=== PATIENT | male | born 1990 | race Caucasian/White ===

== ENCOUNTER 2017-06-09 19:18 | Inpatient (IN) | payer OTHER ==
[~2017-06-09 19:18] MED LIST: ISOVUE-370 76%-LOCM 1 ML ONE
[2017-06-09] MEDS ORDERED: Lorazepam 2 MG/ML VIAL ONE ×2 (19:50→23:45)
[2017-06-09] MEDS ORDERED: Fosphenytoin Sodium 1,500 MG in Sodium Chloride 0.9% 50 ML IVPB SCH (20:15)
[2017-06-09] MEDS ORDERED: Haloperidol Lactate 5 MG/ML VIAL ONE ×2 (20:18→20:19)
[2017-06-09 21:10] LABS: Band 3 % (5-11); Hematocrit 56.3 % (42.0-52.0); Mean Platelet Volume 8.5 fL (7.4-10.4); Neutrophil 78 % (42-75); Reactive Lymphocytes 2 % (0-10); Red Blood Cell (RBC) Count 5.89 mill/uL (4.70-6.10); White Blood Cell (WBC) Count 54.2 thou/uL (4.8-10.8)
[2017-06-09 21:12] LABS: ALT (SGPT) 10 U/L (8-55); AST (SGOT) 24 U/L (5-34); Alkaline Phosphatase 72 U/L (40-150); BUN (Urea Nitrogen) 34 mg/dL (8.9-20.6); Bilirubin, Total 4.9 mg/dL (0.2-1.2); CK (CPK) 162 U/L (30-200); Calc. Creatinine Clearance 0 mL/min (70-130); Calcium 9.2 mg/dL (7.8-10.44); Carbon Dioxide 20 mmol/L (22-29); Estimated GFR-MDRD 49; Globulin 2.2 g/dL (2.4-3.5); Lipase 26 U/L (8-78)
[2017-06-09 21:43] LABS: Chloride Less than 65 mmol/L (98-107)
--- NOTE | 2017-06-09 21:52 | CT ---
CT HEAD: INDICATIONS: Seizure activity. FINDINGS: There is no evidence of ventriculomegaly, mass effect, midline shift, or acute intracranial hemorrhag e. The imaged paranasal sinuses reveal no acute fluid levels. IMPRESSION: No acute intracranial hemorrhage or mass effect. Should symptoms of seizures persist, may consider brain MRI for further evaluation. POS: Colleen
--- NOTE | 2017-06-09 21:57 | RAD ---
ONE VIEW CHEST: HISTORY: Seizure. COMPARISON: None. FINDINGS: Normal cardiac silhouette. The lungs and pleural spaces are clear. No pneumothorax or osseous abnor malities noted. IMPRESSION: No acute cardiopulmonary process. POS: H
[2017-06-09] MEDS ORDERED: Midazolam HCl 2 mg/2 ml Vial ONE ×2 (22:03→23:18)
[2017-06-09] MEDS ORDERED: Vecuronium 10 MG VIAL ONE (22:03)
[2017-06-09] MEDS ORDERED: Fentanyl 20 MCG/ML 250 ML ONE (22:04)
[2017-06-09] MEDS ORDERED: Potassium Chloride 20 MEQ in Sodium Chloride 0.9% 250 ML 250 ML IVPB SCH (22:15)
[2017-06-09 22:31] LABS: Lactic Acid - Sepsis 29.1 mmol/L (0.5-2.2)
[2017-06-09] MEDS ORDERED: Acyclovir Sodium 900 MG in Sodium Chloride 0.9% 250 ML 250 ML IVPB SCH (23:00)
[2017-06-09 23:06] LABS: Bilirubin Negative (Negative); Blood, Urine Large (Negative); Glucose, Urine (Dipstick) Negative (Negative); Ketone, Urine Negative (Negative); Nitrite Negative (Negative); Protein, Urine (Dipstick) 100 mg/dL (Neg-Trace)
[2017-06-09 23:08] LABS: Bacteria/HPF None Seen HPF (None Seen); Hyaline Casts/LPF 4-6 HYALINE CAST LPF (0-3 Hyaline); Squamous Epithelial 0-3 HPF (0-3); WBC/HPF 0-3 HPF (0-3)
[2017-06-09 23:14] LABS: Amphetamine Not Detected (NotDetected); Methamphetamine Not Detected (NotDetected)
--- NOTE | 2017-06-09 23:14 | RAD ---
EXAM: ONE VIEW CHEST 06/09/17 COMPARISON: 06/09/17, 8:53 p.m. HISTORY: Altered mental status. Line placement. FINDINGS: One view chest demonstrates an endotracheal tube at the level of the T2 vertebral body. Interval plac ement of right sided subclavian catheter with the distal tip in the expected region of the superior v jovana cava. No pneumothorax on this supine projection. Normal cardiac silhouette. No consolidation or mass. No osseous abnormality. IMPRESSION: Endotracheal tube and subclavian catheter as above. No pneumothorax. POS: CORBY
[2017-06-09 23:15] LABS: Methadone Not Detected (NotDetected)
[2017-06-09 23:15] LABS: Acetaminophen Less than 6.0 mcg/mL (10.0-30.0); Salicylate Less than 8.0 mg/dL (15.0-30.0)
[2017-06-09 23:23] LABS: Oxyhemoglobin 97.1 % (94.0-97.0); Sodium 121 mmol/L (135-148)
[2017-06-09 23:25] LABS: Mechanical Tidal Volume 500 ml; Mode SIMV; Modified Allen's Test POSITIVE; Vent YES
[2017-06-10 00:16] LABS: Troponin I 0.019 ng/mL (< 0.028)
[2017-06-10 00:30] LABS: CSF, Glucose 118 mg/dl (40-70)
[2017-06-10] MEDS ORDERED: Potassium Chloride 20 MEQ in Sodium Chloride 0.9% 250 ML 250 ML IVPB SCH (01:00)
[2017-06-10 01:35] LABS: Anion Gap 16 mmol/L (10-20); Carbon Dioxide 36 mmol/L (22-29)
[2017-06-10 01:37] LABS: BUN (Urea Nitrogen) 34 mg/dL (8.9-20.6); Calc. Creatinine Clearance 0 mL/min (70-130); Calcium 7.4 mg/dL (7.8-10.44); Chloride 73 mmol/L (98-107); Estimated GFR-MDRD 61
[2017-06-10] MEDS ORDERED: Midazolam HCl 5 mg/ml Vial ONE (01:45)
[2017-06-10] MEDS ORDERED: Propofol 1,000 MG/100 ML VIAL IV ONE (01:49)
--- NOTE | 2017-06-10 02:38 | PDOC.EVN ---
Event Note - Event Note Event Note: [id number] H&P Dictated 1. Acute respiratory failure 2. Lactic acidosis 3. Leukocytosis 4. Seizures Plan: see orders
[2017-06-10] MEDS ORDERED: Fentanyl 20 MCG/ML 250 ML IVPB SCH (02:45)
[2017-06-10] MEDS ORDERED: DISCONTINUE PREVIOUS NARCOTIC PAIN MEDICATIONS AND BENZODIAZEPINES FS SCH (02:45)
[2017-06-10] MEDS ORDERED: Ondansetron ODT 4 MG TAB SL PRN (02:46)
[2017-06-10] MEDS ORDERED: Ondansetron HCl/PF 4 MG/2 ML Vial IVP PRN (02:46)
[2017-06-10] MEDS ORDERED: Morphine 2 mg/2ml in 0.9% NaCl PF SYRINGE IVP PRN (03:00)
[2017-06-10] MEDS: NS 0.9% w/ 40 MEQ KCL 1,000 ML IV SCH ×2 (03:10→14:08)
[2017-06-10] MEDS ORDERED: Potassium Chloride 40 MEQ in Sodium Chloride 0.9% 250 ML 250 ML IVPB SCH (04:30)
[2017-06-10 04:58] LABS: Anion Gap 12 mmol/L (10-20); BUN (Urea Nitrogen) 35 mg/dL (8.9-20.6); Calc. Creatinine Clearance 67 mL/min (70-130); Calcium 7.7 mg/dL (7.8-10.44); Carbon Dioxide 35 mmol/L (22-29); Chloride 81 mmol/L (98-107); Estimated GFR-MDRD 51
[2017-06-10] MEDS ORDERED: Fentanyl 100 MCG/2 ML VIAL ONE (06:33)
--- NOTE | 2017-06-10 07:02 | HP ---
DATE OF ADMISSION: 06/10/2017 CHIEF COMPLAINT: Seizures. HISTORY OF PRESENT ILLNESS: Patient is a 27-year-old male with history of marijuana abuse and cyclic vomiting syndrome, now came to the ER complaining of seizures. According to the patient's partner, the patient was at home and started having seizure. The seizure lasted approximately 5-7 minutes, so patient was brought to the ER. Upon ER arrival, the patient had another episode of seizure. Follow ing the seizure, the patient was postictal and following that the patient got confused and agitated, so patient was intubated for airway protection. The patient is currently on the vent support, not ab le to get much history. According to the patient's partner, the patient is having nausea and vomitin g since Thursday, which the patient did get this cyclic episodes of vomiting, but did not have any vom iting today. Denies any fever, denies any chills, denies any cough, denies any sputum production acc ording to the patient's partner. PAST MEDICAL HISTORY: History of marijuana uses and cannabinoid vomiting syndrome. PAST SURGICAL HISTORY: None. SOCIAL HISTORY: Positive for smoking, positive for alcohol use, positive for marijuana. ALLERGIES: PENICILLIN. REVIEW OF SYSTEMS: None available from the patient. PHYSICAL EXAMINATION: CONSTITUTIONAL/VITAL SIGNS: At the time of H&P performed, blood pressure is 100/50, afebrile, pulse ox 97%. GENERAL: The patient is intubated. HEENT: Anterior nares patent. Oral cavity: Positive for ET tube. NECK: Supple. No JVD. CARDIOVASCULAR SYSTEM: S1, S2 present. Regular rate and rhythm, no murmurs, no rubs, no gallops. RESPIRATORY SYSTEM: No wheezing, no rhonchi. Breath sounds bilaterally. GASTROINTESTINAL: Abdomen is soft, nontender, no guarding, no organomegaly, no masses felt. MUSCULOSKELETAL: No edema. CRANIAL NERVES SYSTEM: The patient is sedated and intubated, not following commands. PSYCHIATRIC: Mood is lethargic. LABORATORY DATA: At the time of H&P performed, white count 4.2, hemoglobin 9.4, platelet count is 45 4. Blood gas showed pH 7.55, pCO2 45, pO2 316, bicarbonate is 38.8. BMP showed sodium 123, potassiu m 1.7, chloride 73, CO2 of 36, BUN of 34, creatinine 1.72. CRP is 0.58. Prolactin is 168. UA posit ursula for large blood. CSF analysis done showed cell count is 1 and 3, RBC 10 and 144, glucose is 118, total protein 45. Urine drug screen is positive for cannabinoids and also barbiturates. ASSESSMENT AND PLAN: The patient is a 27-year-old male. 1. Acute respiratory failure secondary to seizures. Plan to monitor respiratory status closely. Pl an to consult Pulmonary to evaluate the patient. We will follow the patient. 2. Seizures. Plan to start the patient on p.r.n. Ativan. Continue Diprivan drip. We will wait for Neuro input. 3. Hyponatremia and hypochloremia. We will continue IV fluids, monitor sodium level closely. Sodiu m level checked improved as the potassium level improves. 4. Hypokalemia. We will replace potassium. 5. Lactic acidosis and elevated leukocytosis. Need to rule out sepsis. Plan to start the patient o n broad spectrum antibiotics. Monitor serial lactate levels. Case was discussed in detail with the patient and patient's significant other also and RN.
[2017-06-10 08:06] LABS: Oxyhemoglobin 93.5 % (94.0-97.0); Sodium 126 mmol/L (135-148)
[2017-06-10 08:10] LABS: Mechanical Tidal Volume 500 ml; Mode SIMV.PSV; Modified Allen's Test NOT DONE; Pressure Support 10 cmH2O; Vent YES
--- NOTE | 2017-06-10 08:13 | CT ---
PRELIMINARY REPORT/[facility]/EMERGENCY AFTER HOURS PROCEDURE: EXAM: CT Chest With Intravenous Contrast CLINICAL HISTORY: 27 years old, male; Signs and symptoms; Fever; Patient HX: Fever; 27m presents after new onset seizur e. Partner states that patient was lying in bed, when he arched his back and began convulsing. She reports this lasted "anywhere from 2-7 minutes" and that he started to "foam at the mouth". Patient denies knowledge of the event and what lead up to it. He reports "waking up" once ems arrived . He states that he has had recent episodes of nausea and vomiting for the last 2 days. He states melyssa t he has these episodes over the last 3 years, for which he has had extensive work up and it was [place] that he suffers from hyperemesis cannabinoid syndrome. Patient states he has been trying to quit using marijuana and has not smoked in 4 weeks. Denies fever and chills recently. Denies head injury. TECHNIQUE: Axial computed tomography images of the chest with intravenous contrast. Coronal reformatted images were created and reviewed. CONTRAST: 70 mL of isovue 370 administered intravenously. COMPARISON: No relevant prior studies available. FINDINGS: Lungs: There is consolidation in the superior segment of the LEFT lower lobe and patchy opacities in the bilateral upper lobes compatible with pneumonia. Pleural space: Normal. No pneumothorax. No significant effusion. Heart: The cardiac structures are normal. No significant pericardial effusion. Thyroid: The visualized thyroid gland is unremarkable. Bones/joints: Normal. No acute fracture. No dislocation. Soft tissues: Normal. Vasculature: Normal. No thoracic aortic aneurysm. Lymph nodes: Normal. No enlarged lymph nodes. Tubes, lines and devices: A right subclavian central venous catheter is present, with its tip overlyi ng the region of the superior vena cava. A nasogastric tube lies with its tip in the stomach. An endo tracheal tube is present, lying with its tip 2 cm above the venancio. IMPRESSION: Bilateral pneumonia with large consolidation in the superior LEFT lower lobe. EXAM: CT Abdomen and Pelvis With Intravenous Contrast EXAM DATE/TIME: Exam ordered 06/10/2017 12:02 AM CLINICAL HISTORY: 27 years old, male; Signs and symptoms; Fever; Patient HX: Fever; 27m presents after new onset seizur e. Partner states that patient was lying in bed, when he arched his back and began convulsing. She re ports this lasted "anywhere from 2-7 minutes" and that he started to "foam at the mouth". Patient denies knowledge of the event and what lead up to it. He reports "waking up" once ems arrived . He states that he has had recent episodes of nausea and vomiting for the last 2 days. He states melyssa t he has these episodes over the last 3 years, for which he has had extensive work up and it was [place] that he suffers from hyperemesis cannabinoid syndrome. Patient states he has been trying to quit using marijuana and has not smoked in 4 weeks. Denies fever and chills recently. Denies head injury. TECHNIQUE: Axial computed tomography images of the abdomen and pelvis with intravenous contrast. Coronal reformatted images were created and reviewed. CONTRAST: 70 mL of isovue 370 administered intravenously. COMPARISON: No relevant prior studies available. FINDINGS: ABDOMEN: Liver: There are no focal liver lesions present. Gallbladder and bile ducts: The gallbladder is normal. There is no evidence of biliary ductal dilatio n. No calcified stones. Pancreas: The pancreas is normal. No ductal dilation. Spleen: The spleen is normal. Adrenals: The adrenal glands are normal. Kidneys and ureters: The kidneys are normal. No hydronephrosis. Stomach and bowel: The duodenum is unremarkable. The stomach is normal. The colon is normal. There is a small bowel small bowel intussusception in the LEFT upper quadrant which is typically patel sient and of no clinical significance. No obstruction. No mucosal thickening. Appendix: No findings to suggest acute appendicitis. PELVIS: Bladder: The bladder is decompressed by a Valdez catheter but is otherwise normal. There is a small am ount of intraluminal air consistent with instrumentation. Reproductive: The prostate gland and seminal vesicles are normal. ABDOMEN and PELVIS: Intraperitoneal space: Normal. No free air. No significant fluid collection. Bones/joints: No acute fracture. No dislocation. Soft tissues: Normal. Vasculature: Normal. No abdominal aortic aneurysm. Lymph nodes: Normal. No enlarged lymph nodes. Tubes, lines and devices: A nasogastric tube lies with its tip in the stomach. IMPRESSION: No acute findings. Thank you for allowing us to participate in the care of your patient. Dictated and Authenticated by: Ben Rodriguez MD 06/10/2017 12:32 AM Central Time ([place] & [place]) FINAL REPORT CT CHEST AND ABDOMEN AND PELVIS WITH IV CONTRAST I agree with the preliminary report given by Dr. Ben Rodriguez of [facility]. POS: H
--- NOTE | 2017-06-10 08:20 | PDOC.PN ---
- Subjective Encounter Start Date: 06/10/17 Encounter Start Time: 08:18 Mr. Gutierrez was seen today in follow-up of seizures, and electrolyte abnormalities. He is intubated and sedated. He has ahd some agitation, and is kicking, and pulled his [place] catheter out. - Objective MAR Reviewed: Yes Vital Signs & Weight: Vital Signs (12 hours) Pulse Resp BP Pulse Ox 06/10/17 07:32 94 124/66 06/10/17 07:31 94 18 99 06/10/17 06:00 18 06/10/17 04:00 18 06/10/17 02:53 78 135/72 Weight Weight 153 lb 14.122 oz Most Recent Monitor Data Heart Rate from ECG 92 NIBP 124/66 NIBP BP-Mean 84 Respiration from ECG 18 SpO2 100 I&O: 06/09/17 06/10/17 06/11/17 06:59 06:59 06:59 Intake Total 779.5 Output Total 295 60 Balance 484.5 -60 Result Diagrams: 06/09/17 20:36 06/10/17 04:22 Phys Exam - Physical Examination HEENT: PERRLA Respiratory: no wheezing, no rales, no rhonchi, clear to auscultation bilateral Cardiovascular: RRR, no significant murmur, no rub Gastrointestinal: soft, non-tender, positive bowel sounds Musculoskeletal: no edema Dx/Plan (1) Seizure Code(s): R56.9 - UNSPECIFIED CONVULSIONS Status: Acute (2) Hypokalemia Code(s): E87.6 - HYPOKALEMIA Status: Acute (3) Hyponatremia Code(s): E87.1 - HYPO-OSMOLALITY AND HYPONATREMIA Status: Acute (4) Acute renal failure Status: Acute (5) Cyclic vomiting syndrome Status: Acute (6) Cannabis abuse Code(s): F12.10 - CANNABIS ABUSE, UNCOMPLICATED Status: Acute (7) Leukocytosis Code(s): D72.829 - ELEVATED WHITE BLOOD CELL COUNT, UNSPECIFIED Status: Acute - Plan * Seizure- ? etiology according to his girlfriend who is at the bedside, he does not have a history of seizures. This could be due to the metabolic and electrolyte derrangements * Continue IV sedation, and patient was loaded with Fosphenatoin * Await MRI, and Neurology opinion * Leukocytosis- _ due to seizure- he is being covered with broad spectrum IV antibiotics including Levaquin, and Vancomycin, and also an Acyclovir to cover for Herpes Meningitis * ID has been consulted * Hyponatremia, and Hypokalemia are likely from the cyclic vomiting, as well as a contraction alkalosis- continue IV replacement of fluids, and electrolytes * Will need to check a serum Magnesium * Continue ventilator support to protect his airway
[2017-06-10] MEDS ORDERED: CCU Electrolyte Replacement 1 EACH FS ONE (08:45)
[2017-06-10] MEDS ORDERED: Potassium Phosphate 9 MMOL in Sodium Chloride 0.9% 100 ML IVPB PRN (08:59)
[2017-06-10] MEDS ORDERED: Potassium Chloride 20 MEQ TAB PO PRN (08:59)
[2017-06-10] MEDS ORDERED: CCU ELECTROLYTE REPLACEMENT PROTOCOL FS PRN (08:59)
[2017-06-10] MEDS ORDERED: Potassium Phosphate 15 MMOL in Sodium Chloride 0.9% 250 ML 250 ML IV PRN (08:59)
[2017-06-10] MEDS ORDERED: Magnesium Oxide 400 MG TAB PO PRN ×2 (08:59)
[2017-06-10] MEDS ORDERED: Potassium Phosphate 12 MMOL in Sodium Chloride 0.9% 250 ML 250 ML IV PRN (08:59)
[2017-06-10] MEDS ORDERED: Potassium Chloride 40 MEQ in Sodium Chloride 0.9% 250 ML 250 ML IVPB PRN (08:59)
[2017-06-10] MEDS ORDERED: Magnesium 2 GM/NS 0.9% 100 ML 2 GM in Premix Bag 1 BAG IVPB PRN (08:59)
[2017-06-10] MEDS: Enoxaparin Sodium 40 MG/0.4 ML SYRINGE SC SCH (09:24)
[2017-06-10] MEDS: Lorazepam 2 MG/ML VIAL SLOW IVP PRN ×2 (09:24→23:10)
[2017-06-10] MEDS: Pot Chloride/Pot Bicarb/Cit Ac 25 mEq Effervescent Tablet PO SCH ×2 (10:10→17:33)
[2017-06-10] MEDS: Famotidine/PF 20 mg/2ml Vial SLOW IVP SCH ×2 (10:11→20:05)
--- NOTE | 2017-06-10 10:11 | CON ---
DATE OF CONSULTATION: 06/10/2017 CONSULTING PHYSICIAN: Dr. Knowles in Critical Care. CONSULTED PHYSICIAN: Dr. Damon with Urology. REASON FOR CONSULTATION: Traumatic Valdez removal. HISTORY OF PRESENT ILLNESS: Mr. Gutierrez is a 27-year-old male who currently has been admitt ed for seizures and altered mental status. He was intubated in the emergency room for his seizure ac tivity. Last night, he underwent a sedation holiday this morning to see how he would respond off sed ation and unfortunately the patient became extremely agitated and began pulling at things out of conc octavio for his ET tube, his arms were restrained, but he used his feet and toes to pull out his Valdez ca theter which resulted in bright red bleeding from the meatus. Pressure was held on the penis which s low the bleeding down, but I was consulted for further assistance. I recommended that the nurses att empt to gently replace an 18 British Valdez catheter back into the bladder and so long as they got urin e back from the bladder that the balloon could be inflated. If there was any difficulty or no urine return, they were not to inflate the balloon and notify me for catheter placement. On my arrival to the patient's bedside, the catheter has already been placed. The patient is re-sedated and remains i ntubated. There is a family member at bedside who provided the history as the patient cannot speak f or himself. Discussing it with the family member, they state that the patient has never had previous histories of hematuria, kidney stones, prior urologic surgeries, urinary tract infections or any dif ficulty with urination. ALLERGIES: PENICILLIN. CURRENT MEDICATIONS: None. PAST MEDICAL HISTORY: Vomiting syndrome. PAST SURGICAL HISTORY: None. SOCIAL HISTORY: Patient smokes cigarettes as well as marijuana. He does drink a fair amount of rum and cokes about 3-7 a week. There is no other reported use of illicit drugs other than marijuana. FAMILY HISTORY: Noncontributory. REVIEW OF SYSTEMS: I am not able to obtain review of systems from the patient as he is currently int ubated. PHYSICAL EXAMINATION: VITAL SIGNS: Temperature 98.6, pulse 91, blood pressure 109/65, respirations 18 on ventilator, satur ation 99% with 30% FiO2. GENERAL: Patient is currently intubated and sedated. HEENT: ET tube secured in place. Pupils are small, but otherwise symmetric. No scleral icterus. T rachea midline. CARDIOVASCULAR: Regular rate and rhythm, normal S1 and S2. Symmetric pulses. CHEST: Bibasilar crackles. Symmetric expansion of lungs. Patient is breathing through a ventilator . ABDOMEN: Soft, nontender, and nondistended. No hepatosplenomegaly. Positive bowel sounds. GENITOURINARY: Valdez catheter has been reinserted, it is only a 16 British catheter. There is some b lood tinged urine in the drainage tube, but there does not appear to be any clots. Catheter secured to the patient's leg with foam tape and a StatLock. Testes are bilaterally descended. No scrotal ed tamra. RECTAL: Deferred. EXTREMITIES: No clubbing, cyanosis or edema. MUSCULOSKELETAL: There are no joint deformities or joint erythema noted. Range of motion could not be tested as the patient is currently sedated and restrained. NEUROLOGIC: Not tested. SKIN: Warm, dry, good turgor, no rashes or lesions. PSYCHIATRIC: Could not be tested. LYMPHATICS: There is no obvious lymphadenopathy in the supraclavicular, axillary, popliteal, and ing uinal regions. LABORATORY DATA AND X-RAY FINDINGS: On laboratory evaluation, a full set of labs in the [facility], which I have reviewed. Of note, the patient's white count is 54,000 with hemoglobin of 19.4, pl atelet count is 454,000. Sodium is 126 with potassium of 2.0, creatinine of 1.66. CT of the chest, abdomen, and pelvis done on 06/09/2017 demonstrates no acute findings other than bilateral pneumonia with large consolidation in the superior left lower lobe. ASSESSMENT AND PLAN: A 27-year-old male with traumatic Valdez removal with correct insertion back into the bladder with only blood tinged urine output. He is currently on antibiotics already w ith vancomycin and Levaquin for his pneumonia. This should be more than adequate coverage for his ur inary tract. I would recommend leaving the Valdez catheter in place secured for at least 7 days at ich time if he is extubated and awake, he can undergo a voiding trial. As long as he is able to urin ate properly and does not have any further urinary constriction to constraints, he should not require any further treatment from my standpoint. I will continue to monitor him while he is in the [facility] to see when he will be a candidate for a voiding trial.
[2017-06-10] MEDS: Propofol 1,000 MG/100 ML VIAL IV PRN ×2 (10:25→18:16)
[2017-06-10] MEDS ORDERED: Vancomycin HCl 1 GM in Premix Bag 1 BAG IVPB SCH ×2 (11:00→23:00)
[2017-06-10] MEDS ORDERED: Vancomycin HCl 1.5 GM in Sodium Chloride 0.9% 250 ML 300 ML IVPB SCH (11:00)
[2017-06-10 12:33] LABS: Anion Gap 8 mmol/L (10-20); BUN (Urea Nitrogen) 34 mg/dL (8.9-20.6); Calc. Creatinine Clearance 56 mL/min (70-130); Calcium 7.6 mg/dL (7.8-10.44); Carbon Dioxide 36 mmol/L (22-29); Chloride 87 mmol/L (98-107); Estimated GFR-MDRD 41
[2017-06-10 13:31] LABS: #Basophils 0.1 thou/uL (0.0-0.2); #Eosinphils 0.1 thou/uL (0.0-0.7); %Lymphocytes 16.9 % (21.0-51.0); Hematocrit 43.8 % (42.0-52.0); Mean Platelet Volume 8.4 fL (7.4-10.4); Red Blood Cell (RBC) Count 4.59 mill/uL (4.70-6.10); White Blood Cell (WBC) Count 18.6 thou/uL (4.8-10.8)
[2017-06-10] MEDS ORDERED: Acyclovir Sodium 780 MG in Sodium Chloride 0.9% 250 ML 250 ML IVPB SCH (14:00)
[2017-06-10] MEDS: Potassium Chloride 40 MEQ in Premix Bag 1 BAG IVPB PRN (14:13)
--- NOTE | 2017-06-10 14:37 | CON ---
DATE OF CONSULTATION: 06/10/2017 REASON FOR CONSULTATION: Neutrophilia,.seizures. HISTORY OF PRESENT ILLNESS: A 27-year-old who is admitted for the first time to [facility] and has a history of chronic use of marijuana with recurrent episodes of vomiting. He has had those for the past 4 years and usually they occur every 4-8 weeks. He will go for a few days with vomiting and will stop using cannabinoids and then symptoms will resolve and then he will resume the use subsequently. According to his girlfriend for the past few months he has tried to decrease the intake of cannabinoids, but still having intermittent recurrence of the episodes. At this time he was recovering from one of those episodes of vomiting and then he had seizure activity. Prior to the event the girlfriend does not remember any complaint of headache, fever or chills. No respiratory symptoms. No abdominal pain, no diarrhea, no genitourinary symptoms, no joint symptoms or skin disorder. PAST MEDICAL HISTORY: Chronic marijuana use with likely cannabinoid hyperemesis syndrome. PAST SURGICAL HISTORY: Negative. SOCIAL HISTORY: He was a student at [employer], but quit after his roommate committed suicide and now he had been working in the retail area. SOCIAL HISTORY: He drinks alcoholic beverages intermittently, heterosexual and uses cannabinoids chronically. ALLERGIES: PENICILLIN with a rash. CURRENT MEDICATIONS: Inhalers, acyclovir, enoxaparin, Pepcid, fentanyl, levofloxacin, Ativan, magnesium, morphine, potassium, vancomycin. PHYSICAL EXAMINATION: VITAL SIGNS: T-max 98.6, blood pressure 106/70, pulse 85, respirations 13, O2 sat 92%. GENERAL: The patient gets agitated intermittently, but he is intubated right now. He removed his Valdez catheter forcefully and it had to be reinserted. SKIN: Shows the peripheral IV access. Valdez catheter. HEENT: Ocular movements appear conjugate. Pupils are reactive. Sclerae white. There is a quite prominent chemosis bilaterally. Orotracheal intubation. LUNGS: With symmetric clear breath sounds. HEART: S1, S2, regular rate. No S3 or S4, no murmurs. ABDOMEN: Flat, soft, no organomegaly, no ascites. No bladder distention. EXTREMITIES: No joint inflammatory activity. He is able to move all extremities equally. NEURO: He is obtunded. LABORATORY: White cell count was 54,000 down to 18,000, hemoglobin 19 and now 15, MCV 25, platelets were 454, now down to 210, 78% neutrophils, 3% bands, pH 7.5 and now 7.46, pCO2 216. Chemistry with sodium on arrival 121, his initial potassium was 1.6, creatinine 1.72, bilirubin 4.9, AST 24, ALT 10. Albumin 2.8. Urinalysis with 100 protein, large blood. CSF with 1WBC, 10 RBCs, glucose 118, and protein 45. Toxicology with barbiturates and cannabinoids detected. HIV serology nonreactive. Two sets of blood cultures, no growth thus far. Chest, abdomen, and pelvis CT was within normal limits. In the chest CT, there was evidence of consolidation in superior segment of left lower lobe with patchy opacities. ASSESSMENT: 1. Chronic marijuana use with likely cannabinoid hyperemesis syndrome. 2. Hyponatremia and severe hypokalemia associated with vomiting secondary to above with then seizure activity due to this electrolyte abnormality as the most likely scenario. 3. Possible aspiration pneumonia. DISCUSSION: The patient will be transitioned to Rocephin and Flagyl or Rocephin and clindamycin. Discontinue vancomycin. Discontinue levofloxacin and acyclovir. Continue conservative management. Eventually, the patient will need addiction management. May consider a gastric emptying study since the cause of cannabinoid hyperemesis syndrome is specifically inhibition of gastric motility secondary to activation of cannabinoid receptors at the level of the gastrointestinal tract. [employer] infection has been effectively ruled out. MTDD
[2017-06-10] MEDS ORDERED: cefTRIAXone\\ROCEPHIN 1 GM in Sodium Chloride 0.9% 100 ML IVPB SCH (15:00)
[2017-06-10] MEDS: Clindamycin/D5W 600 MG in Premix Bag 1 BAG IVPB SCH ×2 (16:27→20:04)
[2017-06-10] MEDS: cefTRIAXone\\ROCEPHIN 1 GM in Sodium Chloride 0.9% 100 ML IVPB SCH (17:33)
[2017-06-10] MEDS: Fentanyl 20 MCG/ML 250 ML IVPB SCH (20:28)
--- NOTE | 2017-06-10 21:24 | CON ---
DATE OF CONSULTATION: 06/10/2017 HISTORY OF PRESENT ILLNESS: Trent Gutierrez is unemployed gentleman who previously worked at [employer]. Apparently, he presented to the ER yesterday with seizure activity. His girl for 7 years is in the bedside and states that the patient has longstanding history of persis tent nausea and vomiting for, which he was laid off at work. He was smoking marijuana excessively, a pparently felt that his nausea and vomiting where due to marijuana, he has cut back on his smoking hi story. He drinks 6-7 drinks on a week, but does not drink on regular basis and he smokes cigarettes about 3 cigarettes a day. Yesterday, he presented to the ER with new onset of seizures. He is convulsing. He came to the ER where he was foaming at the mouth. He was given medicine for seizures, became violent and agitated. He was intubated. ER physician then told me that he had elevated white count and spinal tap was done in the ER, results of which revealed 1 wbcs, 10 rbcs, glucose 118 and 45, all within normal limits. He was started on acyclovir, Levaquin and vancomycin. His CT imaging studies in the ER, particularly to note CT head was normal. CT of his chest and abdom en reveals a left-sided infiltrate, which is not visible on the chest x-ray, suggesting he probably e tommyer had a pneumonia or aspirated. PAST MEDICAL HISTORY: Otherwise pertinent for marijuana abuse. No history of diabetes, hypertension , and previous surgeries apparently none. He had an endoscopy of upper and lower GI, 4 years ago by local physician for his nausea and vomiting and was normal. REVIEW OF SYSTEMS: Otherwise unremarkable. His sedation was withheld, this morning became agitated. VITAL SIGNS: Pulse 85, blood pressure 116/84, sats 92%, respirations 18. CHEST: Reveals no crackles, or wheezing. CARDIAC: Normal S1, S2. No gallops. ABDOMEN: Soft. LABORATORY: His white count was elevated last night at 54,000. H&H is 13 and 56, platelet count 445 , 78 segs, 3 bands. PO2 is 316, pCO2 42, pH 7.5, sodium 121, potassium 1.6. Creatinine 1.72. Album in is low at 3.8. 1.58. Thyroid function was normal, prolactin was 68. IMPRESSION: 1. New onset of seizures, possibly secondary to hyponatremia. 2. Hyperemesis secondary to marijuana abuse. 3. Major imbalance. 4. Renal failure, probably prerenal. PLAN: 1. He has multiple antibiotics on board. We should cover his pneumonia. Slow hydration for sodium. 2. Await input from Neurology. 3. Hopefully wean and extubate in the next 24 hours. We will start him on low dose nutritional supp ort. 45 minutes critical care time.
[2017-06-11] MEDS: NS 0.9% w/ 40 MEQ KCL 1,000 ML IV SCH ×2 (00:13→10:00)
[2017-06-11] MEDS: Clindamycin/D5W 600 MG in Premix Bag 1 BAG IVPB SCH ×4 (02:11→20:24)
[2017-06-11] MEDS: Propofol 1,000 MG/100 ML VIAL IV PRN ×3 (02:12→13:55)
[2017-06-11 04:44] LABS: #Basophils 0.1 thou/uL (0.0-0.2); #Eosinphils 0.1 thou/uL (0.0-0.7); #Lymphocytes 2.7 thou/uL (1.20-3.40); #Monocytes 1.3 thou/uL (0.11-0.59); #Neutrophils 15.2 thou/uL (1.40-6.50); %Basophils 0.5 % (0.0-1.0); %Eosinophils 0.5 % (0.0-10.0); %Lymphocytes 13.9 % (21.0-51.0); %Monocytes 6.5 % (0.0-10.0); Hematocrit 43.6 % (42.0-52.0); Mean Platelet Volume 8.3 fL (7.4-10.4); Red Blood Cell (RBC) Count 4.44 mill/uL (4.70-6.10); White Blood Cell (WBC) Count 19.4 thou/uL (4.8-10.8)
[2017-06-11 05:12] LABS: Anion Gap 7 mmol/L (10-20); BUN (Urea Nitrogen) 34 mg/dL (8.9-20.6); Calc. Creatinine Clearance 43 mL/min (70-130); Calcium 7.9 mg/dL (7.8-10.44); Carbon Dioxide 34 mmol/L (22-29); Chloride 96 mmol/L (98-107); Estimated GFR-MDRD 30
[2017-06-11] MEDS: Potassium Chloride 40 MEQ in Premix Bag 1 BAG IVPB PRN (05:17)
--- NOTE | 2017-06-11 05:49 | CON ---
DATE OF CONSULTATION: 06/10/2017 REFERRING PROVIDER: Pavel Osborne MD. REASON FOR CONSULTATION: Seizures. HISTORY OF PRESENT ILLNESS: Mr. Gutierrez is a 27-year-old male who has been consulted for e valuation of seizure. History is obtained from the patient's medical chart as well as his parents wh o are present at the bedside. Mother reports that he was with his girlfriend yesterday. He has hist ory of marijuana abuse. She states that whenever he stops smoking marijuana, even when he has used m arijuana afterward, he develops vomiting that lasts 6-7 days. He did have use of marijuana about a w quechan ago and he was continuing to have repeated vomiting. Yesterday, he was noted to have a seizure-t ype activity. This was witnessed by his girlfriend. She had mentioned that he was unresponsive and had tonic-clonic convulsions that lasted 5-7 minutes. She had called EMS and he had 2 more episodes of seizure-like activity. He was brought to [facility] and on the way, EMS had witnes sed another seizure-like event. On arrival to [facility], he was noted to be having difficulty to pr otect his airway and thus had to be intubated. He has not had any more seizures since being admitted to the hospital. He was loaded with the Dilantin. Mother reports that he has no prior history of s eizure disorder. There has been no prior history of head trauma or sinus infection. He has no famil y history of seizures. PAST MEDICAL HISTORY: Significant for repeated marijuana use. PAST SURGICAL HISTORY: None significant. SOCIAL HISTORY: Unknown except prior history of marijuana use. FAMILY HISTORY: Noncontributory. CURRENT MEDICATIONS: None. ALLERGIES: Include PENICILLIN. REVIEW OF SYSTEMS: Unable to perform. PHYSICAL EXAMINATION: VITAL SIGNS: Blood pressure of 118/81, pulse of 94, temperature of 98.6, respirations of 13 on mecha nical ventilation. GENERAL: Intubated, sedated, male, in no apparent distress. RESPIRATORY: Clear to auscultation bilaterally. CARDIOVASCULAR: Regular rate and rhythm. NEUROLOGIC: Mental Status: The patient is intubated and sedated. He does not respond to verbal or noxious stimuli. Cranial nerves: Pupils are 3 mm and reactive. He does have a positive cough and g ag reflex. He does breathe over the ventilator machine. Motor exam showed normal tone and bulk. He does withdraw to noxious stimuli. There is no asymmetry noted. Sensory: He responds to noxious st imuli with a grimace and withdrawal. Deep tendon reflexes 1-2+ reflexes in both lower extremities. Babinski: Plantar responses equivocal bilaterally. Gait and Romberg coordination could not be teste d. LABORATORY DATA: Reviewed, which included CBC, BMP, urinalysis, CSF studies, urine drug screen and H IV antibody, which is significant for white cell count of 18.6, sodium of 128, potassium of 2.6, BUN of 34, creatinine of 2.0, calcium of 7.6, magnesium of 3.0, CSF WBC was 1, CSF glucose is 118, and CS F total protein is 45. IMAGING STUDIES: CT head without contrast was reviewed, which showed no acute intracranial abnormali ty. IMPRESSION: 1. Generalized tonic-clonic seizure. 2. Hyponatremia. 3. Hypokalemia. 4. Marijuana abuse. ASSESSMENT AND PLAN: Mr. Gutierrez is a thin 27-year-old male who presented with 6-7 days' h istory of vomiting that was preceded by marijuana abuse. He was noted to have a generalized tonic-cl onic convulsions and required intubation for airway protection. At this time, I would recommend star ting the patient on Keppra 500 mg b.i.d. IV. This can be switched to oral on the same dose. Once he is extubated and able to swallow, I will recommend obtaining MRI brain with and without contrast and an EEG. Continue supportive care. Continue current medical management. Plan to wean off sedation and ventilator machine as deemed appropriate by the intensive care physician.
[2017-06-11 07:28] LABS: Oxyhemoglobin 91.9 % (94.0-97.0); Sodium 132 mmol/L (135-148)
[2017-06-11 07:30] LABS: Modified Allen's Test POSITIVE
[2017-06-11 07:31] LABS: Mechanical Tidal Volume 450 ml; Mode SIMV; Pressure Support 10 cmH2O; Vent YES
--- NOTE | 2017-06-11 08:11 | PDOC.PN ---
- Subjective Encounter Start Date: 06/11/17 Encounter Start Time: 08:09 Mr. Gutierrez was seen today in follow-up of seizures. He is intubated and sedated. There were no major concerns reported last night. - Objective MAR Reviewed: Yes Vital Signs & Weight: Vital Signs (12 hours) Temp Pulse Resp BP 06/11/17 07:14 105 H 145/86 H 06/11/17 07:00 100.2 F H 06/11/17 06:00 15 06/11/17 04:06 99.8 F H 06/11/17 04:00 14 06/11/17 03:09 101 H 120/69 06/11/17 03:00 98.5 F 06/11/17 02:00 12 06/11/17 00:00 11 L 06/10/17 23:00 98.3 F 06/10/17 22:36 97 132/77 06/10/17 22:00 11 L Weight Admit Weight 153 lb 14.4 oz Weight 158 lb 8.198 oz Most Recent Monitor Data Heart Rate from ECG 104 NIBP 145/85 NIBP BP-Mean 102 Respiration from ECG 10 SpO2 95 I&O: 06/10/17 06/11/17 06/12/17 06:59 06:59 06:59 Intake Total 779.5 4679.8 Output Total 295 1615 100 Balance 484.5 3064.8 -100 Result Diagrams: 06/11/17 03:33 06/11/17 03:33 Phys Exam - Physical Examination HEENT: PERRLA Respiratory: no wheezing, no rales, no rhonchi, clear to auscultation bilateral Cardiovascular: RRR, no significant murmur, no rub Gastrointestinal: soft, non-tender, positive bowel sounds Musculoskeletal: no edema Dx/Plan (1) Seizure Code(s): R56.9 - UNSPECIFIED CONVULSIONS Status: Acute (2) Hypokalemia Code(s): E87.6 - HYPOKALEMIA Status: Acute (3) Hyponatremia Code(s): E87.1 - HYPO-OSMOLALITY AND HYPONATREMIA Status: Acute (4) Acute renal failure Status: Acute (5) Cyclic vomiting syndrome Status: Acute (6) Cannabis abuse Code(s): F12.10 - CANNABIS ABUSE, UNCOMPLICATED Status: Acute (7) Leukocytosis Code(s): D72.829 - ELEVATED WHITE BLOOD CELL COUNT, UNSPECIFIED Status: Acute - Plan * Seizures- plan is for MRI and EEG today * He is currently on mechanical ventilation- sedation has been stopped this morning, and hopefully he can be weaned * Hypokalemia- replacing * Hyponatremia- improving * Leukocytosis- much improved, he is currently on antibiotics to cover for possible aspiration pneumonia. * Continue DVT and GI Prophylaxis
[2017-06-11] MEDS: Enoxaparin Sodium 40 MG/0.4 ML SYRINGE SC SCH (08:55)
[2017-06-11] MEDS: Pot Chloride/Pot Bicarb/Cit Ac 25 mEq Effervescent Tablet PO SCH ×2 (08:57→16:04)
[2017-06-11] MEDS ORDERED: FLU VACC QS2017-18 36 mo. & older 0.5 ML SYRINGE IM ONE (09:00)
--- NOTE | 2017-06-11 09:54 | RAD ---
PORTABLE SEMI UPRIGHT FRONTAL CHEST RADIOGRAPH: Date: 06-11-17 Comparison: 06-09-17 History: Ventilated CCU patient. FINDINGS: Stable endotracheal tube terminates at the level of the clavicular heads. Nasogastric tube is present , extending into the upper abdomen on the left. There is a right sided vascular catheter, stable. There is new mild increased linear density in the left perihilar region and the left lung base which may signify volume loss or infectious pneumonitis. There is new dense opacity in the right lung base obscuring the right hemidiaphragm and right heart b order with blunting of the right costophrenic angle. IMPRESSION: Interval development of dense opacity in the right lung base. This may be on the basis of mucous plug ging with volume loss, pleural fluid, and or aspiration. Patchy new opacity in the left base may sign amrit volume loss or aspiration/infiltrate as well. Follow up imaging following treatment advised. POS: [facility]
[2017-06-11] MEDS ORDERED: Lacri-Lube Opth Oint 3.5 GM TUBE EA EYE PRN (10:34)
--- NOTE | 2017-06-11 11:27 | PRG ---
DATE OF SERVICE: 06/11/2017 SUBJECTIVE: This morning, he is intubated and sedated on Diprivan and fentanyl is being withheld for a while to see how much he makes with this. OBJECTIVE: VITAL SIGNS: Temperature 100.2, blood pressure 150/86, respirations 10. His I's and O's are 4679 in , 1615 out. HEENT: Pupils are equal. CHEST: Reveals bilateral rhonchi. CARDIAC: Normal S1, S2. ABDOMEN: Soft, no masses. LABORATORY DATA: White count 19 and H&H is 14 and 42, platelet count is 197,000, pO2 is 60, pCO2 46, and pH 7.43, creatinine is 2.59, it was 2 yesterday. His BUN is 34. Cortisol level is low. X-ray shows a right-sided infiltrate, atelectasis, new infiltrate on left side. IMPRESSION: Bilateral infiltrates, pneumonia, probably aspiration. He is on clindamycin and Rocephi n, appears to be adequate for the time being. IMPRESSION: 1. Encephalopathy. 2. Hyponatremia from binge vomiting. 3. Renal failure. 4. Aspiration pneumonia. 5. Electrolyte imbalance. PLAN: Withhold sedation to see how appropriate the patient is, he is scheduled for an MRI, otherwise continue slow hydration. I will follow.
--- NOTE | 2017-06-11 11:36 | OP ---
DATE OF PROCEDURE: 06/11/2017 SURGEON: Dr. Khris Knowles PROCEDURE: Bronchoscopy with lavage. INDICATIONS: Right lung atelectasis and new left-sided infiltrate. PROCEDURE IN DETAIL: Informed consent obtained from the father and the patient's . The flexible bronchoscope was then passed using adapter endotracheal tube. Distal trachea was visualized which w as unremarkable. On entering the right lung, there was extensive pus occluding the right lower lobe and basilar segments. This was suctioned and lavaged until clear. Thereafter, the right upper, righ t middle lobe visualized without any further endobronchial disease. The area was lavaged with normal saline. The left lung was inspected. This had less amount of pus in the basilar segments with mild erythema, but no endobronchial disease. It was also lavaged with normal saline. The lavage fluid w as aspirated, appeared to have multiple marijuana particles along with the gross pus. This was sent to the lab for Gram stain and C&S. The patient otherwise tolerated the procedure well.
[2017-06-11] MEDS: Lorazepam 2 MG/ML VIAL SLOW IVP PRN (12:09)
--- NOTE | 2017-06-11 15:22 | MRI ---
BRAIN MRI WITHOUT CONTRAST: DATE: 06/11/17. COMPARISON: None. HISTORY: Seizure. TECHNIQUE: Multiplanar, multisequence MR imaging of the brain is obtained without contrast using a seizure woody col. The patient was not given contrast media secondary to acute worsening of renal function. FINDINGS: The diffusion weighted imaging demonstrates no evidence for acute infarction. There is partial opacification of the frontal sinus on the left. There is significant mucosal thicke cristina involving bilateral ethmoid air cells and bilateral sphenoid sinuses, left greater than right. There is partial opacification of bilateral maxillary sinuses with bilateral maxillary sinus air flui d levels. Arterial flow voids at the axial level of the skull base appear grossly unremarkable on the T2 weight ed imaging. Coronal thin section gradient echo imaging and T1 weighted imaging demonstrates normal structure and signal intensity within the hippocampi. Orbits/globes appear grossly unremarkable. No abnormal white matter signal intensity identified on T 2 or FLAIR imaging. There is no midline shift, mass effect, or ventricular enlargement. No Chiari-I malformation. Regio nal bone marrow signal intensity appears grossly unremarkable. IMPRESSION: Paranasal sinus disease. The study is otherwise unremarkable. POS: [facility]
--- NOTE | 2017-06-11 15:58 | EKG ---
Test Reason : Blood Pressure : / mmHG Vent. Rate : 104 BPM Atrial Rate : 104 BPM P-R Int : 112 ms QRS Dur : 086 ms QT Int : 362 ms P-R-T Axes : 053 092 042 degrees QTc Int : 476 ms Sinus tachycardia Rightward axis Abnormal ECG When compared with ECG of 09-JUN-2017 20:54, (Unconfirmed) Premature supraventricular complexes are no longer Present ST no longer depressed in Inferior leads QT has lengthened Confirmed by ETHAN ARRIAZA ([id number]) on 06/11/2017 3:57:50 PM Referred By: KARLY Confirmed By:ETHAN ARRIAZA
[2017-06-11] MEDS: cefTRIAXone\\ROCEPHIN 1 GM in Sodium Chloride 0.9% 100 ML IVPB SCH (17:09)
[2017-06-11] MEDS ORDERED: Famotidine/PF 20 mg/2ml Vial SLOW IVP SCH (21:00)
[2017-06-12] MEDS: Propofol 1,000 MG/100 ML VIAL IV PRN ×2 (00:02→05:12)
[2017-06-12] MEDS: NS 0.9% w/ 40 MEQ KCL 1,000 ML IV SCH ×3 (00:48→17:33)
[2017-06-12] MEDS: Fentanyl 20 MCG/ML 250 ML IVPB SCH (03:44)
[2017-06-12] MEDS: Clindamycin/D5W 600 MG in Premix Bag 1 BAG IVPB SCH ×4 (03:52→20:16)
[2017-06-12 05:54] LABS: Anion Gap 7 mmol/L (10-20); BUN (Urea Nitrogen) 33 mg/dL (8.9-20.6); Calc. Creatinine Clearance 62 mL/min (70-130); Calcium 8.5 mg/dL (7.8-10.44); Carbon Dioxide 35 mmol/L (22-29); Chloride 99 mmol/L (98-107); Estimated GFR-MDRD 44
[2017-06-12] MEDS ORDERED: DC Sedation Protocol FS ONE (07:52)
--- NOTE | 2017-06-12 08:09 | PRG ---
DATE OF SERVICE: 06/12/2017 This morning he is awake, alert, more responsive. Sedation is withheld. He is weaned and extubated. PHYSICAL EXAMINATION: VITAL SIGNS: Pulse 112, blood pressure 118/80, sats are 95%, respirations 28. X-ray still shows bilateral infiltrates. CHEST: Chest reveals bilateral rhonchi and crackles. CARDIAC: Normal S1, S2. IMPRESSION: 1. Status post seizure activity and metabolic encephalopathy. 2. Hyponatremia, electrolyte imbalance. 3. Sinusitis. 4. Marijuana abuse. 5. Renal failure. PLAN: Continue slow hydration. Continue antibiotics, deescalate once we the cultures back. PT, nutrition, and supportive care in the ICU. I will follow. One-half hour critical care time.
--- NOTE | 2017-06-12 08:12 | PDOC.PN ---
- Subjective Encounter Start Date: 06/12/17 Encounter Start Time: 08:10 Mr. Gutierrez was seen today in follow-up of seizure, and aspiration pneumonia. He is awake, and just recently taken off sedation. He is extubated. He says" I' m a bit disoriented". - Objective MAR Reviewed: Yes Vital Signs & Weight: Vital Signs (12 hours) Temp Pulse Resp BP 06/12/17 06:00 13 06/12/17 04:00 99.5 F 17 06/12/17 02:09 95 99/56 L 06/12/17 02:00 16 06/12/17 00:00 99 F 14 06/11/17 23:02 94 95/43 L 06/11/17 21:50 12 Weight Admit Weight 153 lb 14.4 oz Weight 161 lb 6.054 oz Most Recent Monitor Data Heart Rate from ECG 90 NIBP 93/53 NIBP BP-Mean 70 Respiration from ECG 12 SpO2 97 I&O: 06/11/17 06/12/17 06/13/17 06:59 06:59 06:59 Intake Total 4679.8 3670.3 Output Total 1615 3085 Balance 3064.8 585.3 Result Diagrams: 06/11/17 03:33 06/12/17 03:30 Phys Exam - Physical Examination HEENT: PERRLA Respiratory: no wheezing + occasional rhonchi Cardiovascular: RRR, no significant murmur Gastrointestinal: soft, non-tender, positive bowel sounds Musculoskeletal: no edema Dx/Plan (1) Seizure Code(s): R56.9 - UNSPECIFIED CONVULSIONS Status: Acute (2) Hypokalemia Code(s): E87.6 - HYPOKALEMIA Status: Resolved (3) Hyponatremia Code(s): E87.1 - HYPO-OSMOLALITY AND HYPONATREMIA Status: Resolved (4) Acute renal failure Status: Acute (5) Cyclic vomiting syndrome Status: Acute (6) Cannabis abuse Code(s): F12.10 - CANNABIS ABUSE, UNCOMPLICATED Status: Acute (7) Leukocytosis Code(s): D72.829 - ELEVATED WHITE BLOOD CELL COUNT, UNSPECIFIED Status: Acute - Plan * Seizure- suspected due to Hyponatremia- MRI results noted, essentially negative, and EEG is still pending * Hyponatremia- corrected * Hypokalemia- replaced * Electrolyte derrangements are due to cyclic vomiting from marijuana use * Aspiration Pneumonia- continue Rocephin and Clindamycin * Acute renal failure- resolving * Discussed with Dr. Knowles- will leave him in the ICU this morning, maybe transfer this afternoon or tomorrow .
--- NOTE | 2017-06-12 08:46 | RAD ---
SEMIUPRIGHT PORTABLE CHEST 1 VIEW: Date: 06/12/17 HISTORY: 27-year-old male with respiratory insufficiency. COMPARISON: 06/11/17. FINDINGS: Life support tubes remain in place. Patchy bilateral perihilar and lower lobe parenchymal changes and left pleural effusion changes are noted. The pleural and parenchymal opacity changes in the left bas e appear worse than on the prior study. IMPRESSION: Persistent vascular congestion and bilateral perihilar and lower lobe parenchymal changes with some d eveloping pleural effusion and slightly more prominent pleural based parenchymal changes in the left lower lobe. POS: [facility]
[2017-06-12] MEDS: Famotidine/PF 20 mg/2ml Vial SLOW IVP SCH ×2 (09:44→20:17)
[2017-06-12] MEDS: Pot Chloride/Pot Bicarb/Cit Ac 25 mEq Effervescent Tablet PO SCH ×2 (09:45→17:32)
[2017-06-12] MEDS: Enoxaparin Sodium 40 MG/0.4 ML SYRINGE SC SCH (09:45)
--- NOTE | 2017-06-12 12:01 | PQF ---
DATE: 06-12-17 ATTN: DR. MIMA GARCIA Please exercise your independent, professional judgment in responding to the clarification form. Clinical indicators are provided on the bottom of this form for your review Please check appropriate box(s): [ ] Sepsis due to: (Pna, etc.) [ ] Severe sepsis with acute organ dysfunction of: (Examples: respiratory failure, encephalopathy, acute kidney failure, other ) [ X ] Other diagnosis __Aspiration Pneumonia [ ] Unable to determine In addition, please specify: Present on Admission (POA): [ X ] Yes [ ] No [ ] Unable to determine For continuity of documentation, please document condition throughout progress notes and discharge summary. Thank You. CLINICAL INDICATORS - SIGNS / SYMPTOMS / LABS ER DIAGNOSIS: NEW ONSET SEIZURES, AMS CHANGES, HYPOKALEMIA, HYPONATREMIA, LEUKOCYTOSIS, METABOLIC ACIDOSIS H&P: FOLLOWING THE SEIZURE, THE PATIENT WAS POSTICTAL AND FOLLOWING THAT THE PATIENT FOR CONFUSED AND AGITATED, SO PATIENT WAS INTUBATED FOR AIRWAY PROTECTION. H&P: LACTIC ACIDOSIS AND ELEVATED LEUKOCYTOSIS, NEED TO R/O SEPSIS. TEMP: 06-11-17: 99.8, 100.2 PULSE: 06-11-17: 101, 105, 103, 107, 110 RR: 06-11-17: 26, 21 WBC: 06-09-17: 54.2 06-10-17: 18.6 06-11-17: 19.4 LACTIC ACID: 06-09-17: 29.1 06-10-17: 6.0 Hyperglycemia in absence of diabetes mellitus: 06-09-17: 185 06-10-17 : 131 : 198 RISK FACTORS: PN DR. GARCIA 06-12-17: ASPIRATION PNEUMONIA TREATMENTS: IVF ( 06-10-17) CLEOCIN IV ( 06-10-17) ROCEPHIN ( MAR 12-6-17) (This form is maintained as a part of the permanent medical record) 2014 [employer] All Rights Reserved [email or web address] Office: [phone] [facility] CENTERMercedes
[2017-06-12 13:20] VITALS: BMI 21.9
[2017-06-12] MEDS: cefTRIAXone\\ROCEPHIN 1 GM in Sodium Chloride 0.9% 100 ML IVPB SCH (18:23)
[2017-06-12] MEDS: Morphine 4 MG/ML VIAL SLOW IVP PRN (23:44)
[2017-06-13] MEDS: Clindamycin/D5W 600 MG in Premix Bag 1 BAG IVPB SCH ×4 (02:54→22:42)
[2017-06-13] MEDS: NS 0.9% w/ 40 MEQ KCL 1,000 ML IV SCH (02:54)
[2017-06-13 03:16] LABS: #Basophils 0.1 thou/uL (0.0-0.2); #Eosinphils 0.1 thou/uL (0.0-0.7); #Lymphocytes 1.4 thou/uL (1.20-3.40); #Monocytes 1.1 thou/uL (0.11-0.59); %Basophils 0.8 % (0.0-1.0); %Eosinophils 0.5 % (0.0-10.0); %Lymphocytes 9.5 % (21.0-51.0); %Monocytes 7.2 % (0.0-10.0); Hematocrit 39.8 % (42.0-52.0); Mean Platelet Volume 8.2 fL (7.4-10.4); White Blood Cell (WBC) Count 14.6 thou/uL (4.8-10.8)
[2017-06-13 03:37] LABS: Anion Gap 12 mmol/L (10-20); BUN (Urea Nitrogen) 22 mg/dL (8.9-20.6); Calc. Creatinine Clearance 89 mL/min (70-130); Carbon Dioxide 29 mmol/L (22-29); Chloride 103 mmol/L (98-107); Estimated GFR-MDRD 66
[2017-06-13] MEDS: Enoxaparin Sodium 40 MG/0.4 ML SYRINGE SC SCH (08:45)
[2017-06-13] MEDS: Morphine 4 MG/ML VIAL SLOW IVP PRN (09:54)
--- NOTE | 2017-06-13 09:56 | RAD ---
1 VIEW CHEST: Date: 06/13/17 HISTORY: Respiratory distress. COMPARISON: 06/12/17. FINDINGS: Stable right-sided central venous catheter. Interval removal of endotracheal and nasogastric tube. No rmal cardiac silhouette. Pulmonary vessels and hilum are normal. Costophrenic angles are clear. Previ ously noted left-sided effusion has resolved. Patchy interstitial opacities do remain. Focal alveolar infiltrate in the right lung base is suspected. No pneumothorax or osseous abnormalities. IMPRESSION: 1. Interval removal of endotracheal and nasogastric tube. 2. Interval resolution of left-sided pleural effusion. 3. Interstitial and alveolar infiltrates. POS: [facility]
[2017-06-13] MEDS: Famotidine/PF 20 mg/2ml Vial SLOW IVP SCH (10:06)
--- NOTE | 2017-06-13 11:02 | PRG ---
DATE OF SERVICE: 06/13/2017 SERVICE: Pulmonary Medicine. INTERVAL HISTORY: The patient is doing fine from a respiratory standpoint. He is breathing comforta rogers. He has no complaints of fevers, chills, nausea or vomiting. Otherwise, he is doing fairly well . There are no overnight events except for persistent desaturation that seems to be refractory to ox ygen. PHYSICAL EXAMINATION: VITAL SIGNS: Afebrile with T-max 99.1. Pulse 97, blood pressure 138/76, respirations 24, saturation 89% on 2 liters nasal cannula. GENERAL: Patient is awake, alert, in no apparent distress. LUNGS: Decent air entry. There are some rhonchi present on the left. The right is clear to auscult ation. No prolonged expiratory phase or wheezing is appreciated. HEART: Normal rate, regular. ABDOMEN: Soft, nontender, nondistended. Bowel sounds positive. MUSCULOSKELETAL: No cyanosis or clubbing. No pitting in the bilateral lower extremities. NEUROLOGIC: Grossly nonfocal. LABORATORY DATA: WBC is down trending 14.6, hemoglobin 13.1, platelets 224,000. PH 7.43, pCO2 of 46 . Creatinine is down trending to 1.32. Basic metabolic profile is otherwise unremarkable. Urinalys is is unremarkable. CSF was previously fairly clear. Glucose and protein seem to be close to normal . Barbiturates and cannabinoids are positive in the urine drug screen, but otherwise this is negativ e. HIV was unremarkable. Respiratory culture, body fluid culture, and blood culture x2 is negative. IMAGIN. Chest x-ray demonstrates interstitial and alveolar infiltrates, which are roughly stable if not s lightly improving. 2. CT of the chest demonstrates bilateral infiltrates. These are in the dependent section of the ri ght upper lobe, and in the left lower lobe. ASSESSMENT: 1. Acute hypoxic respiratory failure. 2. Community-acquired pneumonia secondary to aspiration related disease. 3. Sinusitis. 4. Marijuana abuse. 5. Seizure disorder. 6. Metabolic encephalopathy, resolved. 7. Acute kidney injury, resolved. PLAN: The patient is doing fantastic from a respiratory standpoint though he still has a little bit of hypoxemia. This quite interesting that he is perfectly comfortable with his degree of hypoxemia. If this persists, we may need to set him up with oxygen in the outpatient setting. For the time francis ng, we will try to increase activity as tolerated, ambulate the patient, get him out of bed into lanny r multiple times daily. We will continue his antibiotics directed at sinusitis, which should cover l ramy issues as well. Pulmonary will continue to follow up for the time being. He will require repeat chest x-ray in 4-6 weeks in the outpatient setting to verify that his infiltrate is resolved.
[2017-06-13] MEDS: Pot Chloride/Pot Bicarb/Cit Ac 25 mEq Effervescent Tablet PO SCH ×2 (12:20→18:14)
[2017-06-13] MEDS: Acetaminophen 325 MG TAB PO PRN ×2 (13:23→20:47)
--- NOTE | 2017-06-13 14:34 | PDOC.PN ---
- Subjective Encounter Start Date: 06/13/17 Encounter Start Time: 09:15 doing better. states he denies any SOB or N/V. no acute night events. continues to be hypoxic although without symptoms - Objective Vital Signs & Weight: Vital Signs (12 hours) Temp Pulse Pulse Pulse Resp BP BP 06/13/17 12:55 98.6 F 102 H 20 128/74 06/13/17 11:56 104 H 16 06/13/17 11:00 99.5 F 115 H 102 H 124/70 06/13/17 08:00 99.1 F 97 24 H 06/13/17 07:39 97 15 06/13/17 07:00 99.1 F 06/13/17 03:26 06/13/17 03:08 93 22 H 06/13/17 03:00 98.9 F Pulse Ox Pulse Ox Pulse Ox 06/13/17 12:55 92 L 06/13/17 11:56 06/13/17 11:00 85 L 86 L 06/13/17 08:00 89 L 06/13/17 07:39 06/13/17 07:00 06/13/17 03:26 90 L 06/13/17 03:08 99 06/13/17 03:00 Weight Admit Weight 153 lb 14.4 oz Weight 157 lb 10.088 oz Most Recent Monitor Data Heart Rate from ECG 98 NIBP 124/70 NIBP BP-Mean 93 Respiration from ECG 25 SpO2 96 I&O: 06/12/17 06/13/17 06/14/17 06:59 06:59 06:59 Intake Total 3670.3 3628 1190 Output Total 3085 3815 1030 Balance 585.3 -187 160 Result Diagrams: 06/13/17 03:00 06/13/17 03:00 Phys Exam - Physical Examination HEENT: PERRLA, moist MMs, sclera anicteric Neck: no nodes, supple, full ROM Respiratory: no wheezing, no rales rhonchi appreciated left side-mild Gastrointestinal: soft, non-tender, no distention, positive bowel sounds Musculoskeletal: no edema, pulses present Neurological: non-focal, moves all 4 limbs Lymphatic: no nodes Psychiatric: normal affect, A&O x 3 Skin: no rash, normal turgor, cap refill <2 seconds Dx/Plan (1) Acute renal failure Status: Acute (2) Cannabis abuse Code(s): F12.10 - CANNABIS ABUSE, UNCOMPLICATED Status: Acute (3) Cyclic vomiting syndrome Status: Acute (4) Leukocytosis Code(s): D72.829 - ELEVATED WHITE BLOOD CELL COUNT, UNSPECIFIED Status: Acute (5) Seizure Code(s): R56.9 - UNSPECIFIED CONVULSIONS Status: Acute - Plan cont current plan of care, plan discussed w/ family, respiratory therapy, out of bed/ambulate * . continue current meds and plan ambulate out of bed frequently wean O2 as tolerated Will downgrade Pulm following if o2 sats dont improve soon, made need home O2 continue to counselor dorm[facility] on marijuana use
[2017-06-13] MEDS: cefTRIAXone\\ROCEPHIN 1 GM in Sodium Chloride 0.9% 100 ML IVPB SCH (18:14)
[2017-06-14] MEDS: Clindamycin/D5W 600 MG in Premix Bag 1 BAG IVPB SCH ×2 (04:01→09:28)
[2017-06-14 04:51] LABS: #Eosinphils 0.3 thou/uL (0.0-0.7); #Lymphocytes 1.9 thou/uL (1.20-3.40); #Monocytes 1.3 thou/uL (0.11-0.59); #Neutrophils 8.1 thou/uL (1.40-6.50); %Basophils 0.2 % (0.0-1.0); %Eosinophils 2.5 % (0.0-10.0); %Lymphocytes 16.5 % (21.0-51.0); %Monocytes 11.5 % (0.0-10.0); Hematocrit 43.2 % (42.0-52.0); Red Blood Cell (RBC) Count 4.35 mill/uL (4.70-6.10); White Blood Cell (WBC) Count 11.6 thou/uL (4.8-10.8)
[2017-06-14 04:57] LABS: Anion Gap 13 mmol/L (10-20); BUN (Urea Nitrogen) 12 mg/dL (8.9-20.6); Calc. Creatinine Clearance 128 mL/min (70-130); Calcium 8.7 mg/dL (7.8-10.44); Carbon Dioxide 24 mmol/L (22-29); Chloride 104 mmol/L (98-107); Estimated GFR-MDRD Greater than 90
[2017-06-14 07:59] VITALS: BP 134/78; TEMP 99.3
[2017-06-14] MEDS: Pot Chloride/Pot Bicarb/Cit Ac 25 mEq Effervescent Tablet PO SCH (09:28)
[2017-06-14] MEDS: Enoxaparin Sodium 40 MG/0.4 ML SYRINGE SC SCH (09:28)
[2017-06-14] MEDS: Acetaminophen 325 MG TAB PO PRN (09:37)
--- NOTE | 2017-06-15 00:31 | DIS ---
ADMISSION DIAGNOSES: 1. Acute respiratory failure secondary to seizures. 2. Seizures. 3. Hyponatremia and hypochloremia. 4. Hypokalemia. 5. Lactacidosis with elevated leukocytosis. 6. Acute kidney injury, likely prerenal in nature. HOSPITAL COURSE: While patient was in hospital, the patient was immediately transferred to the ICU f or closer monitoring. The patient was intubated nicely because of the acute respiratory failure with the seizures. The patient was started on Keppra with the help of Neurology. Pulmonology was also o n board who helped to assist with vent management. The seizures were on the control after starting h im of Keppra. The patient did not develop any new seizures during his time here in hospital. The josias newell was found to have acute kidney injury, which was felt to be prerenal in nature. Therefore, the patient was started on IV fluids, which had corrected his kidney function to where it is normal as o f today. The patient also has significant electrolyte abnormalities, thought to be due to his mariju malcolm use with the cyclic vomiting syndrome of losing a lot of electrolytes due to that. The patient w as started on replacement protocol for which the patient's potassium had resolved as well as an d sodium levels. The patient was later extubated, but was still monitored there in ICU to make sure he did not have any recurrent seizures. MRI was done, which was negative for any organometabolic cau ses that could have caused the seizures. This was thought to be due to the marijuana use. The patie nt was counseled significantly on the use of marijuana. After the patient was extubated, he was orie nted to person, place and time. The patient was also started on antibodies prophylactically for infe ctious process, but it does not appear to be infectious in nature. It appears to be all due to his m arijuana use for which he uses extensively at home. The patient was later transferred to the floor a fter the patient continued to be stable there in ICU. The patient did have hypoxia while not on oxyg en, although the patient was asymptomatic. Even when started on the patient on oxygen, his oxygen le jennifer stayed, where they were at in 88 to 89 range, which was unusual with no findings that could sugge st this presentation. Nonetheless, his sats had improved on his own without any further intervention s. He was now satting 96% to 97% on room air. He was asymptomatic and doing very well. His electro lytes were fine. His kidney function was fine. He had no fevers. Therefore I was called to dischar ge the patient home. He is to follow up with his primary care physician in 3 days. We will also sen d him home with Keppra for a temporary period of time, which can be adjusted or stopped by his primar care physician if need be. This was discussed with the patient in his entirety and all questions w ere answered prior to discharge. DISCHARGE CONDITION: Improved when I first came in. DISCHARGE ACITIVITY: As tolerated. DISCHARGE MEDICATIONS: Please see the medication list, which includes Keppra 500 mg p.o. b.i.d. DISCHARGE DIET: Regular diet. DISPOSITION: To home. FOLLOWUP: The patient will follow up with primary care physician in 3 days. DISCHARGE PLAN: Discharge planning was greater than 30 minutes.
--- NOTE | 2017-06-15 19:27 | PRG ---
DATE OF SERVICE: 06/12/2017 SUBJECTIVE: Mr. Gutierrez has not had any seizure over the past 24 hours. He was extubated this rudy elam. Per nurse, he has been somewhat confused since being extubated. There has not been any seizure type activity noted during that time. He does to talk to his girlfriend and recognizes her appropria tely. PHYSICAL EXAMINATION: VITAL SIGNS: Stable. He is afebrile. GENERAL: Well-developed and well-nourished male in no apparent distress. RESPIRATORY: Clear to auscultation bilaterally. CARDIOVASCULAR: Regular rate and rhythm. NEUROLOGIC: Showed awake and alert, but somewhat confused and disoriented white male in no apparent distress. Speech and language: Fluent speech. Cranial nerves: Pupils are 3 mm and reactive. Visu al boucher are intact. Extraocular muscles are intact. No nystagmus is noted. Face is symmetric. T ongue and uvula are midline. Motor exam showed normal tone and bulk with 5/5 strength in both upper extremities. IMAGING STUDIES: MRI brain with and without contrast was reviewed which showed no acute intracranial abnormality. EEG was reviewed, which showed normal rhythm without any epileptiform discharges or tr ansient asymmetry noted. IMPRESSION: 1. Generalized tonic-clonic seizure. 2. Cyclic vomiting. 3. Marijuana use. Mr. Gutierrez is a pleasant 27-year-old male who presented with generalized tonic clonic seiz ure. He was found to have low sodium, which may have been the precipitating event for his seizures. I have discussed with the family in detail and explained that the seizures are likely secondary to e lectrolyte abnormality. I would recommend continuing on Keppra 500 mg b.i.d. I have explained to em that he needs to be off driving for at least 3 months. He needs to avoid climbing on ladders or r ooftops and avoid using heavy electrical machinery. I have explained to the patient's family that hi s confusion is likely secondary to sedation medication that he was receiving while intubated. This w ill improve over the next 24 hours, he will be okay to be discharged to home if he remains stable. H e will follow up in my clinic in 4-6 weeks post-discharge. Thank you for the consultation.
== END 2017-06-14 11:55 | disposition home or self-care (01) | DRG 166 ==
LOC: ERS 19:18 → CCU 06-10 02:23 → 2SE 06-13 13:13
PROVIDERS: ADMIT Internal Medicine; ATTEND Internal Medicine
PROC: 5A1945Z Respiratory Ventilation, 24-96 Consecutive Hours (ICD-10-PCS; 2017-06-10)
PROC: 0BH17EZ Insertion of Endotracheal Airway into Trachea, Via Natural or Artificial Opening (ICD-10-PCS; 2017-06-10)
PROC: 0B9F8ZX Drainage of Right Lower Lung Lobe, Via Natural or Artificial Opening Endoscopic, Diagnostic (ICD-10-PCS; principal; 2017-06-11)
PROC: 5A09457 Assistance with Respiratory Ventilation, 24-96 Consecutive Hours, Continuous Positive Airway Pressure (ICD-10-PCS; 2017-06-13)
PROC: 0BP1XDZ Removal of Intraluminal Device from Trachea, External Approach (ICD-10-PCS; 2017-06-13)
DX: J69.0 Pneumonitis due to inhalation of food and vomit (principal); J96.01 Acute respiratory failure with hypoxia; G93.41 Metabolic encephalopathy; J85.2 Abscess of lung without pneumonia; T17.898A Other foreign object in other parts of respiratory tract causing other injury, initial encounter; N17.9 Acute kidney failure, unspecified; E87.2 Acidosis; E87.1 Hypo-osmolality and hyponatremia; J98.11 Atelectasis; E87.8 Other disorders of electrolyte and fluid balance, not elsewhere classified; G40.409 Other generalized epilepsy and epileptic syndromes, not intractable, without status epilepticus; G43.A0 Cyclical vomiting, in migraine, not intractable; J32.9 Chronic sinusitis, unspecified; E87.6 Hypokalemia; D72.829 Elevated white blood cell count, unspecified; F12.10 Cannabis abuse, uncomplicated; F17.210 Nicotine dependence, cigarettes, uncomplicated; X58.XXXA Exposure to other specified factors, initial encounter; Z88.0 Allergy status to penicillin
CPT/HCPCS: 31500; 36415; 36556; 51702; 62270; 70450; 70551; 70553; 71010; 71260; 74177; 80048; 80053; 80306; 80307; 81003; 81015; 82140; 82533; 82550; 82553; 82805; 82945; 83605; 83690; 83735; 84146; 84157; 84443; 84484; 85025; 85060; 85652; 86140; 87040; 87070; 87205; 87255; 87389; 89051; 90471; 90682; 93005; 93010; 94003; 94640; 94760; 95816; 95819; 96365; 96375; 96376; 99292; 99406; A4216; G0008; G8978-GP-CK; G8979-GP-CH; J0133; J0696; J1630; J1650; J1953; J1956; J2060; J2250; J2270; J2704; J2920; J3010; J3370; J3480; J3490; J7050; J7620; Q2009; Q2036; S0028

== ENCOUNTER 2017-10-06 22:40 | Inpatient (IN) | payer OTHER ==
[2017-10-06 23:21] LABS: Hemoglobin 22.4 g/dL (14.0-18.0); Mean Corpuscular HGB CONC 33.8 g/dL (32.0-36.0); Mean Corpuscular Hemoglobin 30.8 pg (27.0-31.0); Mean Corpuscular Volume 91.3 fl (80.0-94.0); Mean Platelet Volume 8.4 fL (7.4-10.4); Platelet Count 357 thou/uL (130-400); Red Blood Cell (RBC) Count 7.28 mill/uL (4.70-6.10); White Blood Cell (WBC) Count 14.7 thou/uL (4.8-10.8)
[2017-10-06 23:24] LABS: #Basophils 0.1 thou/uL (0.0-0.2); #Lymphocytes 2.4 thou/uL (1.20-3.40); #Monocytes 1.6 thou/uL (0.11-0.59); #Neutrophils 10.7 thou/uL (1.40-6.50); %Basophils 0.4 % (0.0-1.0); %Eosinophils 0.3 % (0.0-10.0); %Lymphocytes 16.3 % (21.0-51.0); %Monocytes 10.5 % (0.0-10.0); %Neutrophils 72.5 % (42.0-75.0)
[2017-10-06] MEDS ORDERED: Haloperidol Lactate 5 MG/ML VIAL ONE (23:28)
[2017-10-06 23:32] LABS: ALT (SGPT) 12 U/L (8-55); AST (SGOT) 18 U/L (5-34); Albumin 4.9 g/dL (3.5-5.0); Alkaline Phosphatase 94 U/L (40-150); BUN (Urea Nitrogen) 27 mg/dL (8.9-20.6); Bilirubin, Total 4.1 mg/dL (0.2-1.2); Calc. Creatinine Clearance 0 mL/min (70-130); Calcium 10.4 mg/dL (7.8-10.44); Estimated GFR-MDRD 64; Globulin 3.1 g/dL (2.4-3.5); Glucose 202 mg/dL (70-105)
[2017-10-06 23:40] LABS: Anion Gap 27 mmol/L (10-20); Carbon Dioxide 34 mmol/L (22-29); Sodium 128 mmol/L (136-145)
[2017-10-06 23:45] LABS: Chloride 69 mmol/L (98-107)
[2017-10-06] MEDS ORDERED: Potassium Chloride 40 MEQ in Sodium Chloride 0.9% 500 ML IV SCH (23:45)
[2017-10-07] MEDS: Dextrose 5 % And 0.9 % NaCl 1,000 ML IV SCH ×3 (02:28→11:08)
[2017-10-07 02:30] VITALS: BMI 23.5
[2017-10-07] MEDS ORDERED: Ondansetron HCl/PF 4 MG/2 ML Vial IVP PRN (02:39)
[2017-10-07] MEDS ORDERED: Ondansetron ODT 4 MG TAB PO PRN (02:39)
[2017-10-07] MEDS ORDERED: Acetaminophen 325 MG TAB PO PRN (02:39)
[2017-10-07] MEDS: Sodium Chloride 0.9% 1,000 ML IV SCH ×2 (02:55→11:08)
[2017-10-07 03:16] LABS: BUN (Urea Nitrogen) 21 mg/dL (8.9-20.6); Calc. Creatinine Clearance 111 mL/min (70-130); Calcium 8.6 mg/dL (7.8-10.44); Estimated GFR-MDRD 90; Glucose 140 mg/dL (70-105); Magnesium 2.4 mg/dL (1.6-2.6)
[2017-10-07 03:24] LABS: Anion Gap 17 mmol/L (10-20); Carbon Dioxide 36 mmol/L (22-29); Chloride 80 mmol/L (98-107); Sodium 131 mmol/L (136-145)
[2017-10-07 03:29] LABS: Potassium 2.2 mmol/L (3.5-5.1)
[2017-10-07] MEDS: Potassium Chloride 20 MEQ TAB PO SCH ×4 (03:42→15:24)
[2017-10-07 06:54] LABS: #Basophils 0.1 thou/uL (0.0-0.2); #Eosinphils 0.1 thou/uL (0.0-0.7); #Lymphocytes 3.7 thou/uL (1.20-3.40); #Monocytes 1.7 thou/uL (0.11-0.59); #Neutrophils 7.3 thou/uL (1.40-6.50); %Basophils 0.5 % (0.0-1.0); %Lymphocytes 28.9 % (21.0-51.0); %Monocytes 13.3 % (0.0-10.0); %Neutrophils 56.4 % (42.0-75.0); Hemoglobin 18.6 g/dL (14.0-18.0); Mean Corpuscular HGB CONC 34.5 g/dL (32.0-36.0); Mean Corpuscular Volume 89.9 fl (80.0-94.0); Mean Platelet Volume 7.9 fL (7.4-10.4); Platelet Count 254 thou/uL (130-400); RBC Distribution Width 11.7 % (11.5-14.5); Red Blood Cell (RBC) Count 5.98 mill/uL (4.70-6.10)
--- NOTE | 2017-10-07 08:51 | HP ---
DATE OF ADMISSION: 10/07/2017 TIME OF SERVICE: 0230 hours. PRIMARY CARE PHYSICIAN: Listed as Dr. Jimbo Green at [facility]. CODE STATUS: Full. CHIEF COMPLAINT: Nausea, vomiting. HISTORY OF PRESENT ILLNESS: Mr. Gutierrez is a 27-year-old male known to our service from a [facility] in 06/2017 when he presented after a severe episode of cannabis hyperemesis. He had over a week of nausea and vomiting at that time he presented with low potassium, low sodium, and severe dehy dration. He was admitted to the ICU and did have seizures. His electrolytes were ultimately replace d. The patient will be extubated and did well. The patient had started to have marijuana again on occasion and presented to the emergency department tonight after 6 days of continuous nausea and vomiting. He has not had any seizures. Labs this time are not as bad as they were last time. He got Haldol in the emergency department and his nausea has vanished. Workup showed sodium of 128, potassium of 2.0. His creatinine is up at 1.35. The rest of the labs a re fairly normal. We were subsequently called for admission. The patient was seen and examined on arrival to the IMCU, he did not get his IV potassium in the ER a s the patient was threatening to leave against medical advice and was ultimately talked this time wit yvonne Diaz as I was struck in the critical care episode. He denies any fevers or chills, no nausea or vomiting at present. No diarrhea, constipation, or GI b leeding. No chest pain, cough, or sputum production. PAST MEDICAL HISTORY: None other than marijuana abuse. PAST SURGICAL HISTORY: None. HOME MEDICATIONS: None. ALLERGIES: PENICILLIN and SULFA. FAMILY HISTORY: Both paternal grandparents with premature coronary artery disease with heart attacks in their 50s. SOCIAL HISTORY: Significant marijuana. He says he quit that now also said that he quit smoking, tho ugh he has been smoking some degree of cigarettes every day. REVIEW OF SYSTEMS: A 10-point review of systems was performed and is negative for all systems except as stated as per HPI. PHYSICAL EXAMINATION: VITAL SIGNS: Temperature 98.2, pulse 107, blood pressure 151/91, respiratory rate 18, satting 97% on room air. GENERAL: He is awake. He is alert. He is oriented x3. He is a well-developed, well-nourished male , appears age appropriate, does not appear to be in distress. It looks slightly disheveled. HEENT: Normocephalic and atraumatic. Pupils equal, round, react to light bilaterally. Mucous membr anes moist. No visible lesions or thrush. NECK: Supple with good range of motion. No carotid upstrokes. I do not appreciate bruits. There i s no thyromegaly. LUNGS: Clear. No wheezes, no rales, or rhonchi. Good air movement. Symmetrical chest excursion. CARDIOVASCULAR: He is tachycardic but regular. Heart rate is in the low 100s. There is normal S1 a nd S2. I do not appreciate murmurs. He has no S3 or S4. ABDOMEN: Soft. It is nontender. He has hyperactive bowel sounds present in all 4 quadrants. There is no rebound, rigidity, or guarding. EXTREMITIES: No cyanosis or clubbing. There is no edema. Good range of motion and 2-second capilla ry refill. SKIN: Otherwise, warm, moist, and well perfused. He has no rashes or lesions. Capillary refill les s than 3 seconds. NEUROLOGIC: Cranial nerves II through XII are grossly intact, he has normal speech. He has good ran ge of motion and 5/5 strength in all 4 extremities. There are no focal deficits. MUSCULOSKELETAL: Normal to inspection. Large joints appeared normal. There is no evidence of infla mmation or palpable effusions. LABORATORY DATA: Sodium is 120, potassium 2.0, chloride 69, bicarbonate 34, BUN 27, creatinine 1.35, and glucose 202. Liver function within normal limits except for total bilirubin of 4.1. CBC showed a white count of 14.7, hemoglobin 22.4, hematocrit 66.5, and platelet count is 357,000. ASSESSMENT AND PLAN: 1. [id number] dehydration secondary to cannabis hyperemesis. The patient received 2 liters of IV fluids in the emergency department. We will continue on IV fluids at 150 mL per hour normal sa line. Recheck labs in mid morning. 2. Hypokalemia, severe. Potassium was 2.0 in the ER, 40 mEq were ordered, but not given until about 2:00 a.m. We will continue oral potassium 40 mEq p.o. q.4 hours for 4 doses range. We will c heck magnesium and replace as needed and we will follow up on repeat labs. 3. History of marijuana and tobacco abuse: Patient states he has quit though as severely doubt that . 4. Acute kidney injury. Creatinine 1.35 almost that was normal, likely secondary to dehydration.
--- NOTE | 2017-10-07 08:56 | CON ---
DATE OF CONSULTATION: 10/07/2017 REASON FOR CONSULTATION: Severe electrolyte abnormalities. HISTORY OF PRESENT ILLNESS: The patient is a 27-year-old male who was admitted to the hospital last night with hyponatremia and hypokalemia from hyperemesis. Hyperemesis is secondary to excessive nick abinoid consumption. He has had this problem before and required 1 previous admission with similar s ymptoms. Additionally, at that time he was having seizures, but this time he says he has not been h aving seizures. PAST MEDICAL HISTORY: 1. Remarkable for cannabinoid hyperemesis syndrome. 2. Previous seizure. PAST SURGICAL HISTORY: None. PSYCHIATRIC HISTORY: Unremarkable. SOCIAL HISTORY: Smokes marijuana and tobacco. Does not consume alcohol. Lives at home with his kelseachristian perez. ALLERGIES: PENICILLIN and SULFA. REVIEW OF SYSTEMS: Twelve point review of systems otherwise negative. PHYSICAL EXAMINATION: VITAL SIGNS: Temperature 98.7, pulse 84, respirations 12, blood pressure 95/48. GENERAL: He is awake and alert, in no distress. HEENT: Unremarkable. NECK: No adenopathy, JVD, or bruits. LUNGS: Clear. CARDIOVASCULAR: S1, S2 regular, without murmur. ABDOMEN: Soft, nontender, nondistended. EXTREMITIES: No clubbing, cyanosis, or edema. LABORATORY DATA: White blood cell count 13, hematocrit 53.8, platelet count 254. Sodium 131, potass ium 2.2, chloride 80, CO2 36, BUN 21, creatinine 1.0, glucose 140. No imaging was obtained. ASSESSMENT: 1. Cannabinoid hyperemesis syndrome. 2. Severe hypokalemia. 3. Hyponatremia. The electrolyte disturbance is secondary to vomiting. PLAN: 1. Agree with hydration with normal saline. 2. The patient is receiving potassium replacement slowly. 3. He is being monitored on telemetry because of his hypokalemia. I have no further recommendations . The patient has been told to stop consuming marijuana. He has been offered help, but has declined . I will notify Dr. Knowles of his admission.
[2017-10-07] MEDS ORDERED: Famotidine/PF 20 mg/2ml Vial SLOW IVP SCH (09:00)
[2017-10-07 16:49] LABS: Anion Gap 7 mmol/L (10-20); BUN (Urea Nitrogen) 16 mg/dL (8.9-20.6); Calc. Creatinine Clearance 135 mL/min (70-130); Calcium 8.4 mg/dL (7.8-10.44); Carbon Dioxide 34 mmol/L (22-29); Chloride 94 mmol/L (98-107); Estimated GFR-MDRD Greater than 90; Glucose 92 mg/dL (70-105); Potassium 3.1 mmol/L (3.5-5.1); Sodium 132 mmol/L (136-145)
[2017-10-07 16:58] VITALS: BP 116/86; TEMP 98.5
--- NOTE | 2017-10-08 00:21 | DIS ---
DATE OF ADMISSION: 10/07/2017 DATE OF DISCHARGE: 10/07/2017 DISCHARGE DIAGNOSES: 1. Cannabinoid hyperemesis syndrome, improved. 2. Severe hypokalemia secondary to #1, improved. 3. Hyponatremia, improved. 4. Acute kidney injury secondary to #1, resolved. CONSULTATIONS: Dr. Breen with Pulmonology Critical Care service. PERTINENT LABORATORY AND X-RAY FINDINGS: Sodium ranged between 128-132, potassium ranged between 2.0 -3.1, creatinine ranged between 0.83-1.35. Magnesium ranged between 2.1-2.4, total bilirubin 4.1. C BC showed a white blood cell count ranging between 13.0-14.7. HOSPITAL COURSE: Patient was admitted to the intermediate care unit after presenting with severe dennis sea, vomiting, and dehydration in the context of cannabinoid hyperemesis syndrome. The patient was p laced on IV fluid hydration with normal saline as well as given potassium supplementation after sever e hypokalemia noted with a potassium level of 2.0. The patient received approximately 200 mEq of pot assium replacement with overall improved potassium level of 3.1 by the time of discharge. The patien t was counseled regarding need for discontinuation of marijuana products; however, patient states he is quitting habit. Patient received general supportive measures and was tolerating regular oral inta ke without recurrence of emesis by the time of discharge. Telemetry monitoring showed T-wave inversi on in lead II throughout the hospital course. Overall, patient clinically stable after IV fluid hydr ation and electrolyte replacement. I have examined the patient at the time of discharge discussed la boratory results and disposition and discharge instructions. The patient verbalizes agreement for di scharge and ready for discharge 10/07/2017. DISCHARGE MEDICATIONS: None. FOLLOWUP: The patient may follow up with Dr. Jimbo Green within 7 days of discharge. CONDITION ON DISCHARGE: Stable. ACTIVITY: Ad kamran. DIET: Regular. CODE STATUS: FULL. DISPOSITION: Home 10/07/2017.
== END 2017-10-07 17:40 | disposition home or self-care (01) | DRG 683 ==
LOC: ERS 22:40 → IMCU/EMU 10-07 00:02
PROVIDERS: ADMIT Internal Medicine Infectious Disease; ATTEND Internal Medicine Infectious Disease
DX: N17.9 Acute kidney failure, unspecified (principal); E87.1 Hypo-osmolality and hyponatremia; E86.0 Dehydration; R11.10 Vomiting, unspecified; E87.6 Hypokalemia; F12.188 Cannabis abuse with other cannabis-induced disorder
CPT/HCPCS: 36415; 80048; 80053; 83735; 85025; 93005; 96361; 96365; 96375; J1630; J3480; J7050; S0028